=== PATIENT | male | born 1965 | race Caucasian/White ===

== ENCOUNTER 2019-07-06 21:22 | Emergency (ER) | payer MEDICAID ==
[~2019-07-06] VITALS: Ht 182.9 cm; Wt 83.9 kg
[2019-07-06] MEDS ORDERED: METF-440 PO (21:31)
--- NOTE | 2019-07-06 22:20 | NUR ---
Patient discharged to home in stable conditon. Written and verbal after care instructions given. Patient verbalizes understanding of instructions. Pt walked out of ER in stable gait. No acute distress noted. Vital signs stable. Respirations even + unlabored.
[2019-07-06 22:21] VITALS: BP 147/88
== END 2019-07-06 22:22 | disposition home or self-care (01) ==
LOC: ER 21:22
DX: M79.2 Neuralgia and neuritis, unspecified (principal); R53.1 Weakness; E11.9 Type 2 diabetes mellitus without complications; Z79.84 Long term (current) use of oral hypoglycemic drugs
CPT/HCPCS: 70450; A4663

== ENCOUNTER 2019-07-10 23:51 | Emergency (ER) | payer MEDICAID ==
[~2019-07-10] VITALS: Ht 182.9 cm; Wt 86.2 kg
[~2019-07-10 23:51] MED LIST: METF-440 PO
[2019-07-11 01:15] LABS: *BILIRUBIN,URIN NEGATIVE (NEGATIVE); *BLOOD, URINE NEGATIVE (NEGATIVE); *CLARITY,URINE CLEAR (CLEAR); *COLOR,URINE YELLOW (YELLOW); *KETONES,URINE NEGATIVE (NEGATIVE); *UROBILINOGEN,URINE 0.2 E.U./dl (NORMAL); LEUKOCYTE ESTERASE ,URINE NEGATIVE (NEGATIVE); NITRITE, URINE NEGATIVE (NEGATIVE); PH,URINE 5.5 (5.0-8.0); UGLUCOSE NEGATIVE (NEGATIVE)
[2019-07-11 01:19] LABS: BASOPHILS # (AUTO) 0.1 K/uL (0.0-8.0); BASOPHILS % (AUTO) 0.6 % (0.0-2.0); EOSINOPHILS # (AUTO) 0.5 K/uL (0.0-0.7); EOSINOPHILS % (AUTO) 4.2 % (0.0-7.0); HEMATOCRIT 39.5 % (36.7-47.1); HEMOGLOBIN 13.4 g/dL (12.5-16.3); LYMPHOCYTES # (AUTO) 3.3 K/uL (20.0-40.0); LYMPHOCYTES % (AUTO) 29.4 % (20.5-51.5); MEAN CORPUSCULAR HEMOGLOBIN 31.2 uug (23.8-33.4); MEAN CORPUSCULAR HGB CONC 34 g/dL (32.5-36.3); MEAN CORPUSCULAR VOLUME 91.9 fL (73.0-96.2); MONOCYTES # (AUTO) 0.9 K/uL (2.0-10.0); MONOCYTES % (AUTO) 8.1 % (0.0-11.0); NEUTROPHILS # (AUTO) 6.4 K/uL (1.8-8.9); NEUTROPHILS % (AUTO) 57.7 % (38.5-71.5); PLATELET COUNT (AUTO) 386 K/uL (152-348); RED BLOOD CELL COUNT(AUTO) 4.29 MIL/uL (4.06-5.63); WHITE BLOOD COUNT (AUTO) 11.1 K/uL (3.6-10.2)
--- NOTE | 2019-07-11 02:01 | NUR ---
Pt in CT scan at this time.
[2019-07-11 02:41] LABS: BILIRUBIN,DIRECT 0.1 mg/dL (0.0-0.2); BILIRUBIN,TOTAL 0.2 mg/dL (0.2-1.0); CREATININE 0.8 mg/dL (0.6-1.3); POTASSIUM 3.8 mmol/L (3.5-5.1); TOTAL PROTEIN, SERUM 6.4 g/dL (6.4-8.2)
[2019-07-11] MEDS ORDERED: IBUPROFEN 600 MG TABLET ONE (03:39)
[2019-07-11 03:45] VITALS: BP 138/74
[2019-07-11] MEDS ORDERED: IBUPROFEN 600 MG TABLET PO ONE (03:45)
== END 2019-07-11 03:40 | disposition home or self-care (01) ==
LOC: ER 23:58
DX: M54.12 Radiculopathy, cervical region (principal); R60.9 Edema, unspecified; M48.00 Spinal stenosis, site unspecified; M25.511 Pain in right shoulder; E78.00 Pure hypercholesterolemia, unspecified; E11.9 Type 2 diabetes mellitus without complications; F17.200 Nicotine dependence, unspecified, uncomplicated; Z79.899 Other long term (current) drug therapy
CPT/HCPCS: 36415; 70030-TC; 70450; 71045; 72125; 73030; 85025; 93005; A4663